=== PATIENT | male | born 1985 | race Caucasian/White ===

== ENCOUNTER 2024-01-21 07:42 | Emergency (ER) | payer OTHER, SELFPAY ==
[2024-01-21 07:46] VITALS: BP 150/96; PULSE 76; TEMP 36.5; O2SAT 98; BMI 23.1
[2024-01-21 07:48] VITALS: PULSE 69
--- NOTE | 2024-01-21 07:53 | ECG_ITS ---
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
[2024-01-21] MEDS: ONDANSETRON PF 4 MG/2 ML VIAL IV (08:02)
[2024-01-21] MEDS: 0.9 % SODIUM CHLORIDE 1,000 ML 1000 ML IV ×2 (08:03→09:14)
--- NOTE | 2024-01-21 08:15 | XR_ITS ---
The [address] [address] Patient Name: RAGHAV DIXON MRN: [id number] date: 1985 Sex: M Assigned Patient Location: ER Current Patient Location: ED.MAIN Accession/Order Number: [id number] Exam Date: 01/21/2024 08:05 Report Date: 01/21/2024 08:34 At the request of: INNA CRUMP Procedure: XR shoulder RT min 2V PROCEDURE: XR shoulder RT min 2V HISTORY: possible dislocation COMPARISON: XR shoulder right 03/17/2018 FINDINGS: BONES:The humeral head is low and slightly anterior in relation to the glenohumeral joint, but this may be exaggerated by patient positioning. Irregularity of the glenoid and humeral head may be sequela of degenerative changes or fracture. SOFT TISSUES:No visible soft tissue swelling. EFFUSION:None visible. OTHER: Negative. XR/XR shoulder RT min 2V IMPRESSION: 1. Atypical appearance of right shoulder; dislocation versus fracture versus degenerative. Repeat imaging with attention to positioning, or consider CT imaging of the shoulder. Electronically authenticated by: MAU GARCIA Date: 01/21/2024 08:34
--- NOTE | 2024-01-21 08:15 | XR_ITS ---
The [address] [address] Patient Name: RAGHAV DIXON MRN: [id number] date: 1985 Sex: M Assigned Patient Location: ER Current Patient Location: ER Accession/Order Number: [id number] Exam Date: 01/21/2024 08:05 Report Date: 01/21/2024 08:32 At the request of: INNA CRUMP Procedure: XR chest 1V EXAMINATION: XR chest 1V HISTORY: chest pain COMPARISON: No relevant comparison available. FINDINGS: LUNGS: No significant pulmonary parenchymal abnormalities. VASCULATURE: No increased pulmonary vasculature. PLEURA: No pneumothorax, effusion, or pleural thickening. CARDIAC: No cardiomegaly or cardiac silhouette abnormality. MEDIASTINUM: No visible mass or adenopathy. BONES: Atypical appearance of right glenohumeral joint. OTHER: Negative. XR/XR chest 1V IMPRESSION: 1. No acute cardiac pulmonary process. 2. Atypical right glenohumeral joint concerning for fracture and/or dislocation. Electronically authenticated by: MAU GARCIA Date: 01/21/2024 08:32
[2024-01-21 08:16] LABS: Basophils Absolute Auto 0.1 10^3/uL (0.0-0.1); Basophils Percent Auto 0.9 % (0.2-2.0); Eosinophils Absolute Auto 0.3 10^3/uL (0.0-0.7); Eosinophils Percent Auto 4.6 % (0.9-7.0); Hematocrit 43.9 % (42.0-54.0); Hemoglobin 14.2 g/dL (14.0-18.0); Immature Granulocytes Abs Auto 0.02 10^3/uL (0.00-0.03); Immature Granulocytes Pct Auto 0.3 % (0.0-0.5); Lymphocytes Absolute Auto 1.6 10^3/uL (1.2-3.8); Lymphocytes Percent Auto 22.6 % (20.5-60.0); Mean Corpuscular HGB Conc 32.3 g/dL (29.9-35.2); Mean Corpuscular Hemoglobin 26.9 pg (25.9-34.0); Mean Corpuscular Volume 83.1 fL (80.0-94.0); Mean Platelet Volume 9.6 fL (9.5-13.5); Monocytes Absolute Auto 0.5 10^3/uL (0.3-0.8); Monocytes Percent Auto 7.5 % (1.7-12.0); Neutrophils Absolute Auto 4.5 10^3/uL (1.4-6.5); Neutrophils Percent Auto 64.1 % (43.0-75.0); Platelet Count 286 10^3/uL (150-450); Red Blood Count 5.28 10^6/uL (4.70-6.10); Red Cell Distribution Width 13.8 % (11.0-15.0)
[2024-01-21 08:32] LABS: Alanine Aminotransferase 31 U/L (16-63); Albumin Globulin Ratio 0.9; Albumin Level 3.8 g/dL (3.4-5.0); Alkaline Phosphatase 86 U/L (46-116); Anion Gap 14.5; Aspartate Amino Transferase 24 U/L (15-37); BUN Creatinine Ratio 6.4; Bilirubin Total 0.4 mg/dL (0.2-1.0); Calcium 9.4 mg/dL (8.5-10.1); Carbon Dioxide 27.1 mmol/L (21.0-32.0); Chloride 104 mmol/L (98-107); Estimated GFR (African America >60 (>=60); Estimated GFR (Non-African Ame >60 (>=60); Globulin 4.1 g/dL; Glucose 93 mg/dL (74-106); Potassium 3.6 mmol/L (3.5-5.1); Sodium 142 mmol/L (136-145); Total Protein 7.9 g/dL (6.4-8.2); Troponin I High Sensitivity 6.2 pg/mL (4.0-76.1)
[2024-01-21 08:56] VITALS: BP 130/86; PULSE 87; O2SAT 100
--- NOTE | 2024-01-21 08:56 | CT_ITS ---
The [address] [address] Patient Name: RAGHAV DIXON MRN: [id number] date: 1985 Sex: M Assigned Patient Location: ER Current Patient Location: Accession/Order Number: [id number] Exam Date: 01/21/2024 08:52 Report Date: 01/21/2024 09:34 At the request of: INNA CRUMP Procedure: CT shoulder RT wo con Exam Type: CT RIGHT SHOULDER Exam Date and Time: 01/21/2024 8:52 AM EDT Indication: 38 years old Male with pain Comparison: Radiograph same date TECHNIQUE: Axial CT images of the right shoulder were obtained without intravenous contrast. Coronal and sagittal reformatted images were obtained. Dose reduction techniques were achieved by using automated exposure control and/or adjustment of mA and/or kV according to patient size and/or use of iterative reconstruction technique. FINDINGS: No acute displaced fracture is evident. The AC joint is congruent. There is mild inferior subluxation of the humerus on the glenoid, however, this is relatively unchanged from 2018 studies. There are surgical changes from prior labral repair. There is bony remodeling of the posterior glenoid. Marginal osteophytes are present with joint space narrowing. No axillary lymphadenopathy. Limited evaluation of the right hemithorax is without acute or suspicious abnormality. CT/CT shoulder RT wo con IMPRESSION: 1. Surgical changes involving the glenohumeral joint with mild inferior subluxation, this appears somewhat chronic with severe osteoarthritis of the left shoulder. No discrete displaced fracture is evident. Electronically authenticated by: ELKIN NANCE Date: 01/21/2024 09:34
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
[2024-01-21 09:10] LABS: Cannabinoid Screen Urine POSITIVE (NEGATIVE)
[2024-01-21 09:11] LABS: Amphetamine Screen Urine POSITIVE (NEGATIVE); Barbiturates Screen Urine NEGATIVE (NEGATIVE); Benzodiazepines Screen Urine NEGATIVE (NEGATIVE); Cocaine Screen Urine NEGATIVE (NEGATIVE); Methadone Screen Urine NEGATIVE (NEGATIVE); Methamphetamines Screen Urine POSITIVE (NEGATIVE); Opiate Screen Urine NEGATIVE (NEGATIVE); Oxycodone Screen Urine NEGATIVE (NEGATIVE); Phencyclidine Screen Urine NEGATIVE (NEGATIVE); Tricyclic Antidepressant Urine NEGATIVE (NEGATIVE)
[2024-01-21 09:12] LABS: Buprenorphine Screen Urine POSITIVE (NEGATIVE)
[2024-01-21 10:23] VITALS: BP 132/86; PULSE 88; O2SAT 98
== END 2024-01-21 10:23 | disposition home or self-care (01) ==
PROVIDERS: Emergency Provider Emergency Medicine Emergency Medical Services
DX: R11.15 Cyclical vomiting syndrome unrelated to migraine (principal); T50.991A Poisoning by other drugs, medicaments and biological substances, accidental (unintentional), initial encounter; S43.031A Inferior subluxation of right humerus, initial encounter; X58.XXXA Exposure to other specified factors, initial encounter
CPT/HCPCS: 36415; 71045; 73030; 73200; 80053; 80307; 83690; 84484; 85025; 93005; 96361; 96374; 99285; J2405